=== PATIENT | female | born 1935 | race Caucasian/White ===

== ENCOUNTER 2018-08-22 09:40 | Day surgery (SDC) | payer MEDICARE, OTHER ==
[2018-08-22] MEDS ORDERED: FENTAnyl 50 MCG/ML VIAL IV (11:30)
[2018-08-22] MEDS ORDERED: HYDROmorphONE 1 MG/5 ML IV SYRINGE IV (11:30)
== END 2018-08-22 13:50 | disposition home or self-care (01) ==
LOC: GIL 09:40 → SDS 09:40 → GIL 13:50
DX: K92.1 Melena (principal); K29.70 Gastritis, unspecified, without bleeding; K64.4 Residual hemorrhoidal skin tags; I25.10 Atherosclerotic heart disease of native coronary artery without angina pectoris; E11.9 Type 2 diabetes mellitus without complications
CPT/HCPCS: 43239; 82962; 88305; 88312